=== PATIENT | female | born 1980 | race Caucasian/White ===

== ENCOUNTER → 2018-08-26 | Outpatient (CLI) | payer OTHER ==
[~2018-08-26] MED LIST: DIATR MEGLU/DIATRIZOATE SODIUM 30 ML BOTTLE ONE
== END | disposition home or self-care (01) ==
LOC: RAH 14:55
PROVIDERS: ATTEND Internal Medicine
DX: Z93.1 Gastrostomy status (principal)
CPT/HCPCS: 74018; Q9963

== ENCOUNTER 2018-11-05 11:54 | Day surgery (SDC) | payer OTHER ==
[2018-11-05] MEDS ORDERED: SODIUM CHLORIDE 0.9% 1000ML 1,000 ML IV ONE (12:31)
[2018-11-05] MEDS ORDERED: PROPOFOL 1000 MG/100 ML 100 ML IV ONE (14:15)
[2018-11-05 14:32] VITALS: BP 112/79
[2018-11-05 14:37] VITALS: BP 116/71
[2018-11-05 14:42] VITALS: BP 103/63
[2018-11-05 14:54] VITALS: BP 108/73
[2018-11-05 15:11] VITALS: BP 117/80
== END 2018-11-05 13:28 | disposition home or self-care (01) ==
LOC: ENDO 11:54 → DAH 11:54 → ENDO 13:28
PROVIDERS: ATTEND Internal Medicine
DX: K31.89 Other diseases of stomach and duodenum (principal); G12.21 Amyotrophic lateral sclerosis; J45.909 Unspecified asthma, uncomplicated; Z79.899 Other long term (current) drug therapy; Z98.890 Other specified postprocedural states; Z88.8 Allergy status to other drugs, medicaments and biological substances
CPT/HCPCS: 43246; A4606; B4088; J2704; J7030

== ENCOUNTER 2019-06-27 10:52 | Day surgery (SDC) | payer OTHER ==
[~2019-06-27] VITALS: Ht 167.6 cm; Wt 57.2 kg
[~2019-06-27 10:52] MED LIST changes: +DEXT1CAP3 PO; -DIATR MEGLU/DIATRIZOATE SODIUM 30 ML BOTTLE ONE; +GLYC1TAB11 PO; +LIDOCAINE HCL 1% 20 ML VIAL ONE; +MONT10TA24 PO; +PROPOFOL 10 MG/ML 20ML VIAL IV ONE; +SODIUM CHLORIDE 0.9% 1000ML 0 ML IV ONE; +SODIUM CHLORIDE 0.9% 1000ML 1,000 ML IV ONE; +TIZA4CAP8 PO; +ZOLP10TA6 PO
[2019-06-27 11:00] VITALS: BP 116/77
[2019-06-27] MEDS ORDERED: INHALER (12:00)
[2019-06-27] MEDS ORDERED: ALBUTEROL (12:00)
== END 2019-06-27 11:40 ==
LOC: ENDO 10:52 → DAH 10:52 → ENDO 11:40
PROVIDERS: ATTEND Internal Medicine
DX: K94.29 Other complications of gastrostomy (principal); Y83.8 Other surgical procedures as the cause of abnormal reaction of the patient, or of later complication, without mention of misadventure at the time of the procedure; R13.10 Dysphagia, unspecified; J45.909 Unspecified asthma, uncomplicated; Z79.899 Other long term (current) drug therapy; Z98.890 Other specified postprocedural states; Z82.49 Family history of ischemic heart disease and other diseases of the circulatory system; Z83.3 Family history of diabetes mellitus
CPT/HCPCS: 43762; A4663; J2704; J7030